=== PATIENT | male | born 1980 | race Caucasian/White ===

== ENCOUNTER 2019-08-21 08:42 | Outpatient (CLI) | payer SELFPAY ==
[2019-08-21 09:28] LABS: Basophils % 0.8 %; Eosinophils # 0.1 10^3/uL (0.0-0.8); Eosinophils % 2.3 %; Hematocrit 44.8 % (42.0-52.0); Lymphocytes % 40.8 %; Mean Corpuscular HGB Conc 33.5 g/dL (30.0-36.0); Mean Corpuscular Hemoglobin 32.1 pg (28.0-34.0); Mean Corpuscular Volume 95.9 fL (80-94); Mean Platelet Volume 10.4 fL (7.4-10.4); Monocytes # 0.5 10^3/uL (0.2-0.9); Monocytes % 9.5 %; Neutrophils # 2.2 10^3/uL (1.8-7.7); Neutrophils % 46.4 %; Nucleated Red Blood Cells % 0 %; Platelet Count 253 10^3/cmm (130-400); Red Blood Count 4.67 10^6/uL (4.1-5.3); Red Cell Distribution Width 11.8 % (12.1-15.1); White Blood Count 4.8 10^3/uL (4.0-10.0)
[2019-08-21 09:46] LABS: Alanine Aminotransferase 16 U/L (0-41); Albumin Level 4.5 g/dL (3.5-5.2); Alkaline Phosphatase 56 IU/L (40-130); Anion Gap 13.6 (5-19); Aspartate Amino Transferase 17 U/L (0-40); Blood Urea Nitrogen 14 mg/dL (6-20); Calcium 9.5 mg/dL (8.5-10.5); Carbon Dioxide 27 mmol/L (22-29); Chloride 102 mmol/L (98-107); Chol HDL Ratio 4.02 mg/dL (1.0-5.00); Cholesterol 217 mg/dL (0-200); Globulin 2.2 g/dL (1.3-4.6); Glomerular Filtration Rate 108.2 mL/min (90-130); Glucose 98 mg/dL (65-115); HDL Cholesterol 54 mg/dL (60-100); LDL Cholesterol Calculated 149 mg/dL (50-129); LDL HDL Ratio 2.76 RATIO (0.00-3.22); Osmolality Calculated 282 mOsm/kg (285-295); Potassium 4.6 mmol/L (3.5-5.1); Sodium 138 mmol/L (136-145); Total Bilirubin 0.4 mg/dL (0.15-1.2); Total Protein 6.7 g/dL (6.6-8.7); Triglycerides 70 mg/dL (0-150)
== END 2019-08-21 08:43 | disposition home or self-care (01) ==
LOC: LAB 08:50
PROVIDERS: PCP Family Medicine; Visit Provider Family Medicine
DX: R07.89 Other chest pain (principal)
CPT/HCPCS: 36415; 80053; 80061; 85025

== ENCOUNTER 2021-06-10 09:21 | Emergency (ER) | payer OTHER, SELFPAY ==
[2021-06-10 09:31] VITALS: BP 159/75; PULSE 57; RESP 19; TEMP 36.4; O2SAT 99
--- NOTE | 2021-06-10 09:38 | XRR_ITS ---
PROCEDURE INFORMATION: Exam: XR Left Forearm Exam date and time: 06/10/2021 8:43 AM Age: 40 years old Clinical indication: Injury or trauma; Other: Dropped pallet on arm; Blunt trauma (contusions or hematomas); Arm, lower; Left TECHNIQUE: Imaging protocol: XR Left forearm. Views: 2 views. COMPARISON: No relevant prior studies available. FINDINGS: Bones/joints: There is a nondisplaced transverse fracture of the mid radial diaphysis, and a slightly displaced comminuted fracture of the mid ulnar diaphysis. No dislocation. Swelling of the surrounding soft tissues is present. Soft tissues: See Bones/joints finding. XR/XR forearm LT 2V [id number] IMPRESSION: 1. Minimally displaced comminuted fracture of the mid ulnar diaphysis. 2. Nondisplaced transverse fracture of the mid radial diaphysis.
[2021-06-10] MEDS: HYDROcodone-acetaminophen 7.5-325 mg Tablet 1 TAB PO (10:08)
--- NOTE | 2021-06-10 10:15 | W.ED.EXTPRO ---
Documented by User: SANTY Manzanares 06/10/21 10:18 HPI - Extremity Problem General: Chief complaint: Extremity Injury, Upper Stated complaint: Dropped pallet on arm Time Seen by Provider: 06/10/21 09:29 History of Present Illness: Patient complains about left forearm pain and this occurred while he was at work today when a pallet fell off a stack of pallets from proximally fell 20 feet striking his left forearm. He presents here with pain and abrasion to his left forearm. Tetanus is not up-to-date. Associated symptoms: Deny chest pain, fever(s) or rash Review of Systems Const: Denies: fever(s), chills or body aches Eyes: Denies: eye discomfort ENMT: Denies: throat pain Card: Denies: chest pain Resp: Denies: dyspnea GI: Denies: abdominal pain, nausea or vomiting Musc: Reports: extremity pain (Left forearm) and extremity swelling Skin/Breast: Reports: other (Abrasion left wrist); Denies: rash Neuro: Denies: headache(s) Psych: Denies: depression or suicidal ideation Physical Exam Const: COMMON NORMALS: patient oriented x3 and alert HENMT: COMMON NORMALS: normocephalic and external ears normal HEAD & SCALP: normocephalic EXTERNAL EAR: Yes external ears normal Eye: COMMON NORMALS: EOMs intact bilaterally Neck/C-Spine: COMMON NORMALS: no JVD Resp: COMMON NORMALS: normal respiratory effort and No use of accessory muscles Cardio: COMMON NORMALS: no JVD GI: INSPECTION: Yes normal to inspection Extremity: LEFT UPPER EXTREMITY: Yes lower arm (Swelling, abrasion, tenderness) Left lower arm: Yes neurovascular exam (Intact, full range of motion fingers and thumb good pulses.) Neuro: COMMON NORMALS: patient oriented x3 SENSORIUM/ORIENTATION: Yes alert Psych: COMMON NORMALS: mental status grossly normal Skin: COMMON NORMALS: no rashes or lesions noted GENERAL SKIN EXAM: no rashes or lesions noted Course Vital Signs: Vital signs: Vital Signs Temperature 97.5 F L 06/10/21 09:31 Pulse Rate 57 L 06/10/21 09:31 Respiratory Rate 19 H 06/10/21 09:31 Blood Pressure 159/75 06/10/21 09:31 Pulse Oximetry 99 06/10/21 09:31 MDM - Extremity (Nontraumatic) Medical Decision Making Patient presents here with a pallet it fell striking his arm this morning. Patient is a work comp case. Does have fractured midshaft ulna and radius. Patient was referred to Dr. Enrique after contact of work comp about which orthopedic clinic they want his to use. Patient provided splint, sling and pain medication. Lab Data Radiology Impressions Forearm X-Ray 06/10/21 09:38 IMPRESSION: 1. Minimally displaced comminuted fracture of the mid ulnar diaphysis. 2. Nondisplaced transverse fracture of the mid radial diaphysis. Discharge Plan Discharge Patient Disposition: Home Clinical Impression: Radius shaft fracture Qualifiers: Encounter type: initial encounter Fracture type: closed Fracture morphology: transverse Fracture alignment: nondisplaced Laterality: left Qualified Code(s): S52.325A - Nondisplaced transverse fracture of shaft of left radius, initial encounter for closed fracture Closed fracture of ulna, shaft, left Qualifiers: Encounter type: initial encounter Fracture morphology: comminuted Fracture alignment: displaced Qualified Code(s): S52.252A - Displaced comminuted fracture of shaft of ulna, left arm, initial encounter for closed fracture Condition: Stable Prescriptions: New hydrocodone-acetaminophen 5-325 mg tablet 1 tab PO TID PRN (Reason: pain) Qty: 14 0RF Discharge Orders: Discharge ED (Routine); Ordered 06/10/21 Ordered By: Derek Carroll Referrals: Dimas Araya DO [Primary Care Provider] - Discharge Diet: Usual diet Discharge Activity: Limit activity as instructed Patient Instructions: Arm Fracture in Adults (ED) Activity Restrictions/Additional Instructions: Follow-up with medical provider as directed. Take medications as prescribed. Return to the ER or your medical provider if condition worsens. Please read and understand discharge instructions. If any questions ask please. Wear sling at all times. Can take off take a bath. You have been referred through work comp services to Dr. Enrique for orthopedic follow-up. Hospital contact with appointment and directions his office. Coding Level of Care Code ED Container Packer Operator for Chg Fwd Exam Comprehensive Documented by User: Pradeep Cook DO 06/10/21 11:06 HPI - Extremity Problem General: Chief complaint: Extremity Injury, Upper Stated complaint: Dropped pallet on arm Time Seen by Provider: 06/10/21 09:29 Course Vital Signs: Vital signs: Vital Signs Temperature 97.5 F L 06/10/21 09:31 Pulse Rate 57 L 06/10/21 09:31 Respiratory Rate 19 H 06/10/21 09:31 Blood Pressure 159/75 06/10/21 09:31 Pulse Oximetry 99 06/10/21 09:31 MDM - Extremity (Nontraumatic) Medical Decision Making Patient presents here with a pallet it fell striking his arm this morning. Patient is a work comp case. Does have fractured midshaft ulna and radius. Patient was referred to Dr. Enrique after contact of work comp about which orthopedic clinic they want his to use. Patient provided splint, sling and pain medication. Chart reviewed and patient discussed with midlevel. Agree with assessment and plan. Lab Data Radiology Impressions Forearm X-Ray 06/10/21 09:38 IMPRESSION: 1. Minimally displaced comminuted fracture of the mid ulnar diaphysis. 2. Nondisplaced transverse fracture of the mid radial diaphysis. Discharge Plan Discharge Patient Disposition: Home Clinical Impression: Radius shaft fracture Qualifiers: Encounter type: initial encounter Fracture type: closed Fracture morphology: transverse Fracture alignment: nondisplaced Laterality: left Qualified Code(s): S52.325A - Nondisplaced transverse fracture of shaft of left radius, initial encounter for closed fracture Closed fracture of ulna, shaft, left Qualifiers: Encounter type: initial encounter Fracture morphology: comminuted Fracture alignment: displaced Qualified Code(s): S52.252A - Displaced comminuted fracture of shaft of ulna, left arm, initial encounter for closed fracture Condition: Stable Prescriptions: New hydrocodone-acetaminophen 5-325 mg tablet 1 tab PO TID PRN (Reason: pain) Qty: 14 0RF Discharge Orders: Discharge ED (Routine); Ordered 06/10/21 Ordered By: Derek Carroll Referrals: Dimas Araya DO [Primary Care Provider] - Discharge Diet: Usual diet Discharge Activity: Limit activity as instructed Patient Instructions: Arm Fracture in Adults (ED) Activity Restrictions/Additional Instructions: Follow-up with medical provider as directed. Take medications as prescribed. Return to the ER or your medical provider if condition worsens. Please read and understand discharge instructions. If any questions ask please. Wear sling at all times. Can take off take a bath. You have been referred through work comp services to Dr. Enrique for orthopedic follow-up. Hospital contact with appointment and directions his office. Coding Level of Care Code ED Container Packer Operator for Savi Fwd Exam Comprehensive
--- NOTE | 2021-06-10 11:34 | DCPLANNER ---
Addendum entered by Licha Schmitz 06/26/21 07:59: Patient had a follow up appointment scheduled for 06.11.21 at ortho with GENO Barcenas - patient did attend appointment. Addendum entered by Licha Schmitz 06/11/21 08:37: Patient has a follow up appointment scheduled for May at 8:30 with GENO Barcenas at ortho. Clinic will call patient with appointment information. Original Note: manager transfer had message to schedule a follow up appointment for patient with ortho. manager transfer called the ortho clinic, spoke with Amaris, gave clinic patients information. Case manger was told that patients information would be printed and reviewed. Clinic will call patient with appointment information.
== END 2021-06-10 11:05 | disposition home or self-care (01) ==
PROVIDERS: Emergency Provider Nurse Practitioner Family; PCP Family Medicine
DX: S52.325A Nondisplaced transverse fracture of shaft of left radius, initial encounter for closed fracture (principal); S52.252A Displaced comminuted fracture of shaft of ulna, left arm, initial encounter for closed fracture; W20.8XXA Other cause of strike by thrown, projected or falling object, initial encounter; Y99.0 Civilian activity done for income or pay
CPT/HCPCS: 29125; 73090; 99283

== ENCOUNTER → 2021-06-11 15:20 | Outpatient (BNVA) | payer OTHER, SELFPAY | PROVIDERS: PCP Family Medicine; Referring Provider Nurse Practitioner Family; Visit Provider Physician Assistant | DX: Z20.822 Contact with and (suspected) exposure to COVID-19 (principal); S52.202D Unspecified fracture of shaft of left ulna, subsequent encounter for closed fracture with routine healing; S52.309 Unspecified fracture of shaft of unspecified radius; X58.XXXD Exposure to other specified factors, subsequent encounter | CPT/HCPCS: 73090; 87635 ==

== ENCOUNTER → 2021-06-13 06:28 | Day surgery (SDC) | payer OTHER, SELFPAY ==
[2021-06-12 14:25] VITALS: BMI 26.2
[2021-06-13] VITALS (12 sets, daily range): BP systolic 128–157; BP diastolic 67–105; PULSE 65–91; RESP 12–18; TEMP 36.4–36.6; O2SAT 95–100
--- NOTE | 2021-06-13 | XR_ITS ---
WS: [id number] Exam: XR forearm LT 2V [id number] Date/Time of Exam: 06/13/2021 12:00 AM Reason For Exam: ORIF LT FOREARM/SCOOBY IMAGES AP and lateral limited C-arm images of the left forearm are submitted for evaluation. There is plate and screw fixation involving fractures of the junction of the middle and distal thirds of the ulna and the midshaft of the radius. Both fractures are in anatomic alignment for healing. No sign of hardware failure or malposition. XR/XR forearm LT 2V [id number] IMPRESSION: 1. Satisfactory internal orthopedic fixation involving fractures of the left ra dius and ulna.
--- NOTE | 2021-06-13 | SCC_ITS ---
Procedure done: 1. ORIF Both Bone forearm fracture (radius and ulnar shaft) 15.9 seconds of fluoroscopic guidance, for a cumulative dose of 0.24 mGy, was provided to Dr. Enrique by the radiology department. C-arm images of the left forearm were saved for the patient's permanent record. [facility]
[2021-06-13] MEDS: sodium chloride 0.9% 1,000 ML 30 ML IV (07:01)
--- NOTE | 2021-06-13 07:20 | W.PM.OPSUD ---
Surgery/Procedure H&P Update DATE OF PROCEDURE: June 13, 2021 DATE H&P PERFORMED: 06/11/21 H&P UPDATE INFORMATION: I have reviewed H&P completed within last 30 days, I have examined patient prior to procedure and No changes to prior documentation PREOP DIAGNOSIS: Both Bone Forearm shaft Fractures Left PLANNED PROCEDURE: Operation Date: 06/13/21 08:00 Proposed Procedures p ORIF Wrist [id number]/s52.325a/s52.309a(Left) - Martínez Enrique DO
--- NOTE | 2021-06-13 07:52 | ANES.PREANE2 ---
Pre-Anesthetic Assessment Height/Weight: Height 1.93 m Weight 97.522 kg Temp Pulse Resp BP Pulse Ox 97.8 F 83 18 138/82 99 06/13/21 06:43 06/13/21 06:43 06/13/21 06:43 06/13/21 06:43 06/13/21 06:43 Preop Diagnosis: Both Bone Forearm shaft Fractures Left Operation Date: 06/13/21 08:00 Proposed Procedures p ORIF Wrist [id number]/s52.325a/s52.309a(Left) - Martínez Enrique DO Familial anesthetic complications: none Last intake: Intake Last Liquid Date 06/12/21 Last Liquid Time 19:00 Last Solid Date 06/12/21 Last Solid Time 17:00 Social Alcohol (few beers per day) Airway Submandibular: within normal limits Cervical ROM: within normal limits Mallampati: Class II Dentition: full History/ROS No significant history except as noted Pulmonary None reported CV/HEM None reported None reported Hepatic None reported GI None reported Metabolic None reported Musc/skel None reported Neuropsych None reported Anesthetic Plan ASA status: 1 Anesthesia: General Medications/Allergies Home Medications Medication Instructions Recorded Confirmed Last Taken Type oxycodone 5 mg tablet 5 - 10 mg PO Q4H PRN 7 Days #30 tab 06/11/21 06/12/21 Unknown Rx Allergies Allergy/AdvReac Type Severity Reaction Status Date / Time No Known Allergies Allergy Verified 06/11/21 15:28 Current Medications Generic Name Dose Route Start Last Admin Trade Name Freq PRN Reason Stop Dose Admin Sodium Chloride 1,000 mls @ 30 mls/hr 06/13/21 06:45 06/13/21 07:01 Sodium Chloride 0.9% IV 06/14/21 06:44 30 mls/hr .Q24H FERNANDO Administration PFSH Anesthesia Social History Smoking and tobacco status: never smoked Data Anesthesia Cardiac Studies: No Data to Display
--- NOTE | 2021-06-13 09:26 | PM.OP ---
Operative Report Date of procedure: June 13, 2021 Pre-op diagnosis: Preop Diagnosis Both Bone Forearm shaft Fractures Left Post-op diagnosis: same Procedure done: 1. ORIF Both Bone forearm fracture (radius and ulnar shaft) Surgeon: Martínez Enrique Commercial Collections Specialist: Aron Barcenas Commercial Collections Specialist: The medical surgical tech, Aron Barcenas, TIMMY was needed for his expertise with fracture care. He was important and necessary throughout the procedure to complete in a safe and timely manner. He assisted with patient positioning prepping and draping tissue retraction suctioning of the operative field protection of the critical structures and tissue closure Estimated blood loss (mL): 15 Tourniquet time (min): 60 Procedure: 1. ORIF Both Bone forearm fracture (radius and ulnar shaft) Patient is brought to the operative suite after undergoing anesthesia patient was prepped and draped in normal sterile fashion. Tourniquet was applied. Attention was brought to the radius first. A volar incision was made over the anterior forearm. A modified Jigar approach was used. The radial artery FCR brachioradialis and neurovascular structures were identified. Fracture was identified subperiosteal dissection was made with an elevator. Fracture was reduced. And a 7 hole [place] compression plate was used. Screws were placed proximal distal to fracture. A compression screw was placed on the proximal end. Through the dynamic hole. And then a total of 3 screws were proximal and 3 screws were distal to the fracture these were cortical screws. He was brought to the ulna. A dissection was made between the ECU and FCU. Fracture again was identified. And an 8 hole plate was placed. 3 screws were placed proximal and 3 screws were placed distal. Wounds were irrigated and closed with Vicryl and nylon suture. Sterile dressings were applied patient was transferred to the PACU in stable condition.
[2021-06-13] MEDS: lidocaine 1% INJ 20 mL INJECTION (09:30)
[2021-06-13] MEDS: HYDROmorphone 1 mg/mL INJ 1 mL 0.5 MG IVP (10:13)
--- NOTE | 2021-06-13 10:48 | ANE.PACU2 ---
Inpatient post-anesthesia follow up: Airway intact: Yes Vital signs: Temperature 97.8 F Pulse Rate 91 Respiratory Rate 18 Blood Pressure 134/105 Pulse Oximetry 99 Oxygen Delivery Me thod Room Air Oxygen Flow Rate 6 Fraction of Inspir ed Oxygen Hydration adequate: Yes Nausea and vomiting: No Pain level: 3 Mental status: Baseline
== END | disposition home or self-care (01) ==
PROVIDERS: PCP Family Medicine; Visit Provider Orthopaedic Surgery
PROC: (CPT 25575; principal; 2021-06-13 08:00)
DX: S52.302A Unspecified fracture of shaft of left radius, initial encounter for closed fracture (principal); S52.202A Unspecified fracture of shaft of left ulna, initial encounter for closed fracture; W23.0XXA Caught, crushed, jammed, or pinched between moving objects, initial encounter; Y99.0 Civilian activity done for income or pay
CPT/HCPCS: 25575; 73090; 76000; C1713; J0690; J1100; J1170; J2250; J2405; J2704; J3010; J7030

== ENCOUNTER → 2021-06-23 08:58 | Outpatient (BNVA) | payer OTHER, SELFPAY | PROVIDERS: PCP Family Medicine; Visit Provider Orthopaedic Surgery | DX: S52.302D Unspecified fracture of shaft of left radius, subsequent encounter for closed fracture with routine healing (principal); S52.202D Unspecified fracture of shaft of left ulna, subsequent encounter for closed fracture with routine healing; X58.XXXD Exposure to other specified factors, subsequent encounter | CPT/HCPCS: 73090 ==

== ENCOUNTER 2021-06-29 09:50 | Outpatient (RCR) | payer OTHER, SELFPAY | END 2021-07-18 23:59 | disposition home or self-care (01) | LOC: SOT 09:50 | PROVIDERS: PCP Family Medicine; Referring Provider Physician Assistant; Visit Provider Physician Assistant | DX: S52.502D Unspecified fracture of the lower end of left radius, subsequent encounter for closed fracture with routine healing (principal); S52.602D Unspecified fracture of lower end of left ulna, subsequent encounter for closed fracture with routine healing; Z51.89 Encounter for other specified aftercare; Z98.890 Other specified postprocedural states; X58.XXXD Exposure to other specified factors, subsequent encounter | CPT/HCPCS: 97022; 97110; 97140; 97166 ==

== ENCOUNTER → 2021-07-14 10:36 | Outpatient (BNVA) | payer OTHER, SELFPAY | PROVIDERS: PCP Family Medicine; Visit Provider Physician Assistant | DX: S52.202D Unspecified fracture of shaft of left ulna, subsequent encounter for closed fracture with routine healing; X58.XXXD Exposure to other specified factors, subsequent encounter | CPT/HCPCS: 73090 ==

== ENCOUNTER 2021-07-19 06:00 | Outpatient (RCR) | payer OTHER, SELFPAY | END 2021-08-18 23:59 | disposition home or self-care (01) | LOC: SOT 06:00 | PROVIDERS: PCP Family Medicine; Referring Provider Physician Assistant; Visit Provider Physician Assistant | DX: S52.502D Unspecified fracture of the lower end of left radius, subsequent encounter for closed fracture with routine healing (principal); S52.602D Unspecified fracture of lower end of left ulna, subsequent encounter for closed fracture with routine healing; X58.XXXD Exposure to other specified factors, subsequent encounter | CPT/HCPCS: 97110; 97140 ==

== ENCOUNTER → 2021-08-27 11:19 | Outpatient (BNVA) | payer OTHER, SELFPAY | PROVIDERS: PCP Family Medicine; Visit Provider Physician Assistant | DX: S52.302D Unspecified fracture of shaft of left radius, subsequent encounter for closed fracture with routine healing (principal); S52.202D Unspecified fracture of shaft of left ulna, subsequent encounter for closed fracture with routine healing; X58.XXXD Exposure to other specified factors, subsequent encounter | CPT/HCPCS: 73090 ==

== ENCOUNTER → 2021-10-27 11:13 | Outpatient (BNVA) | payer OTHER, SELFPAY | PROVIDERS: PCP Family Medicine; Visit Provider Orthopaedic Surgery | DX: S52.92XA Unspecified fracture of left forearm, initial encounter for closed fracture (principal); X58.XXXA Exposure to other specified factors, initial encounter | CPT/HCPCS: 73090 ==

== ENCOUNTER 2024-06-22 21:19 | Emergency (ER) | payer OTHER, SELFPAY ==
[2024-06-22 21:19] VITALS: BP 132/85; PULSE 65; RESP 14; TEMP 36.6; O2SAT 96
--- NOTE | 2024-06-22 21:52 | ED_ITS ---
HPI - Wound/Laceration General: Chief Complaint: Wound/Laceration Stated Complaint: Cut R hand won't stop Bleeding Time Seen by Provider: 06/22/24 21:24 Source: patient Mode of arrival: ambulatory Limitations: no limitations History of Present Illness: 43yo male presents with family for evalu ation of a laceration to the right hand that occurred this evening as he was working in his flooded basement. Patient reports he accidentally cut himself with a knife. He states he is right-hand dominant. States tetanus up-to-date within the past couple of years. He reports that he was not able to get the bleeding stopped. He denies difficulty moving his finger, use of blood thinners, any other concern at this time. Associated symptoms: Denies chills or fever(s) Related Data Previous Rx's ?Medication ?Instructions ?Recorded cephalexin 500 mg capsule 500 mg PO BID 5 days #10 cap s 06/22/24 Allergies Allergy/AdvReac Type Severity Reaction Status Date / Time No Known Allergies Allergy Verified 06/22/24 21:23 Review of Systems Const: Denies: fever(s) or chills Musc: Reports: other (Laceration right hand); Denies: extremity swelling PFSH ED PFSH: Social History Smoking and tobacco/nicotine status: never used tobacco/nicotine Physical Exam Const: COMMON NORMALS: no acute distress, patient oriented x3 and alert GENERAL APPEARANCE: cooperative OTHER: Patient is ambulatory to the exam room unassisted. He is sitting upright on the stretcher no acute distress. He is able to give history with no difficulty. He is interactive with exam appropriately. Family is at bedside HENMT: COMMON NORMALS: normocephalic and atraumatic HEAD & SCALP: normocephalic and atraumatic Resp: COMMON NORMALS: normal respiratory effort Extremity: COMMON NORMALS: full ROM RIGHT UPPER EXTREMITY: Yes hand & digits Right hand and digits: Yes inspection (laceration ulnar aspect right hand) and No ROM exam Neuro: COMMON NORMALS: patient oriented x3 SENSORIUM/ORIENTATION: Yes alert Skin: TRAUMA: laceration linear (right hand) Procedures Laceration Laceration 1: Site: hand Side (If applicable): right Size (cm): 2 Description: linear Depth: simple, single layer Local Anesthetic: lidocaine 2% and with epi Amount of anesthesia used (mL): 1.5 Skin layer closed with: nylon Size (cm): 4-0 Number of sutures: 5 Technique: simple, interrupted Course Vital Signs: Vital signs: Vital Signs Temperature 97.9 F 06/22/24 21:19 Pulse Rate 65 06/22/24 21:19 Respiratory Rate 14 06/22/24 21:19 Blood Pressure 132/85 06/22/24 21:19 Pulse Oximetry 96 06/22/24 21:19 MDM - Wound/Laceration Medical Decision Making 43yo male presents with family for evaluation of a laceration to the right hand that occurred this evening as he was working in his flooded basement. Patient reports he accidentally cut himself with a knife. He states he is right-hand dominant. States tetanus up-to-date within the past couple of years. He reports that he was not able to get the bleeding stopped. He denies difficulty moving his finger, use of blood thinners, any other concern at this time. Patient is nontoxic in appearance. Vital signs are stable. Wound was copiously irrigated and closed with sutures. Wound care discussed. Patient does report tetanus up-to-date within the past 2 to 3 years. He is able to move his fingers with no difficulty. Short course cephalexin sent to patient's pharmacy. Recommend suture removal in 7 to 10 days. Discussed follow-up with primary care/urgent care/emergency department for suture removal. Return precautions provided. Patient states understanding and has no further questions or concerns at this time. No radiology studies performed this visit Discharge Plan Discharge Patient Disposition: Home Clinical Impression: Laceration of hand, right Qualifiers: Encounter type: initial encounter Foreign body presence: without foreign body Qualified Code(s): S61.411A - Laceration without foreign body of right hand, initial encounter Condition: Stable Prescriptions: New cephalexin 500 mg capsule 500 mg PO BID 5 Days Qty: 10 0RF Discharge Orders: Discharge ED (Routine); Ordered 06/22/24 Ordered By: Cristian Camacho Referrals: Dimas Araya DO [Primary Care Provider] - Patient Instructions: Laceration (ED) Activity Restrictions/Additional Instructions: Short course cephalexin was sent to your pharmacy for possible infection of the laceration of the hand Gently wash the wound at least twice daily with soap and water, you may apply antibiotic ointment. Avoid submersion under any water (flores, lakes, ponds, hot tubs, swimming pools, dishwater) until the wound is healed Follow-up with primary care/urgent care in 7 to 10 days for suture removal, sooner if needed Return to the emergency department if any further injury, rapid worsening symptoms, and as needed Print Language: Cambodian Coding Level of Care Code ED Asbestos Brake Lining Finisher Helper for Savi Sargent
== END 2024-06-22 22:19 | disposition home or self-care (01) ==
PROVIDERS: Emergency Provider Nurse Practitioner; PCP Family Medicine
DX: S61.411A Laceration without foreign body of right hand, initial encounter (principal); W26.0XXA Contact with knife, initial encounter
CPT/HCPCS: 12001; 99283